=== PATIENT | male | born 1940 | race Caucasian/White ===

== ENCOUNTER → 2016-08-21 | Outpatient (CLI) | payer OTHER | END | disposition home or self-care (01) | LOC: C.LABMFLN 09:43 | PROVIDERS: ATTEND Radiology Radiation Oncology | DX: C61 Malignant neoplasm of prostate (principal) ==

== ENCOUNTER → 2017-06-24 | Outpatient (CLI) | payer OTHER | END | disposition home or self-care (01) | LOC: C.LABMFLN 10:21 | PROVIDERS: ATTEND Urology | DX: N40.0 Benign prostatic hyperplasia without lower urinary tract symptoms (principal); C61 Malignant neoplasm of prostate ==

== ENCOUNTER 2022-09-04 05:51 | Observation (INO) ==
--- NOTE | 2022-07-28 12:58 | PAT Medication Instructions ---
Medication Instructions Date of Service July 28, 2022 Home Medications Medication Instructions Recorded temazepam 30 mg capsule 30 mg PO HS PRN sleep #90 caps 02/10/22 atorvastatin 40 mg tablet 40 mg PO HS #90 tabs 03/06/22 calcitriol 0.25 mcg capsule See Rx Instructions PO 3XWK #36 05/26/22 caps loratadine 10 mg tablet 10 mg PO DAILY PRN allergy symptoms multivitamin 1 tab PO QAM calcium carbonate 600 mg-vitamin D3 10 mcg (400 unit) tablet (Calcium with Vitamin D) 1 tab PO QAM acetaminophen 325 mg tablet (Tylenol) 650 mg PO BID aspirin 81 mg chewable tablet (Arlin Chewable Low Dose Aspirin) 81 mg PO QAM tramadol 50 mg tablet 50 mg PO Q8H PRN Pain temazepam 30 mg capsule 30 mg PO HS PRN sleep docusate sodium 100 mg capsule (Colace) 100 mg PO QPM melatonin 10 mg capsule 10 mg PO HS PRN sleep atorvastatin 40 mg tablet 40 mg PO HS calcitriol 0.25 mcg capsule See Rx Instructions PO 3XWK cetirizine 10 mg tablet (Zyrtec) 10 mg PO DAILY PRN Allergy Symptoms chlorthalidone 25 mg tablet 25 mg PO QAM escitalopram oxalate 10 mg tablet 10 mg PO QPM fluticasone propionate 50 mcg/actuation nasal spray,suspension 2 spray intranasal QAM levothyroxine 25 mcg tablet 25 mcg PO QAM DO NOT take the morning of surgery loratadine 10 mg tablet 10 mg PO DAILY PRN allergy symptoms multivitamin 1 tab PO QAM calcium carbonate 600 mg-vitamin D3 10 mcg (400 unit) tablet (Calcium with Vitamin D) 1 tab PO QAM calcitriol 0.25 mcg capsule See Rx Instructions PO 3XWK cetirizine 10 mg tablet (Zyrtec) 10 mg PO DAILY PRN Allergy Symptoms chlorthalidone 25 mg tablet 25 mg PO QAM Take morning of surgery With a small sip of water, OTHERWISE NOTHING TO EAT OR DRINK AFTER MIDNIGHT: acetaminophen 325 mg tablet (Tylenol) 650 mg PO BID aspirin 81 mg chewable tablet (Arlin Chewable Low Dose Aspirin) 81 mg PO QAM (unless surgeon directed otherwise) tramadol 50 mg tablet 50 mg PO Q8H PRN Pain (if needed) fluticasone propionate 50 mcg/actuation nasal spray,suspension 2 spray intranasal QAM levothyroxine 25 mcg tablet 25 mcg PO QAM Take evening before surgery loratadine 10 mg tablet 10 mg PO DAILY PRN allergy symptoms (if needed) acetaminophen 325 mg tablet (Tylenol) 650 mg PO BID tramadol 50 mg tablet 50 mg PO Q8H PRN Pain (if needed) temazepam 30 mg capsule 30 mg PO HS PRN sleep (if needed) docusate sodium 100 mg capsule (Colace) 100 mg PO QPM melatonin 10 mg capsule 10 mg PO HS PRN sleep (if needed) atorvastatin 40 mg tablet 40 mg PO HS cetirizine 10 mg tablet (Zyrtec) 10 mg PO DAILY PRN Allergy Symptoms (if needed) escitalopram oxalate 10 mg tablet 10 mg PO QPM Other Notes If you have any questions please call us at [phone] or [phone] or [phone] or [phone]
--- NOTE | 2022-08-05 12:00 | Anesthesiology Consultation ---
Date of Service August 05, 2022 Assessment & Plan (1) Encounter for pre-operative examination: Chart Review Chart Review: Acceptable Risk for Surgery (pending response from cardio re: optimization form ) and Patient seen in Pre Admission Testing - Please fax optimization note re: chest pain and preop EKG to patient's rayon tester (Dr. Froy MORROW Clarence) - Pt is NOT an OPJ candidate due to age and comorbidities Per PAT appt on 08/05/22, patient denies any recent travel or large group activities. Pt is vaccinated for Covid. Will leave to surgeon's discretion if preop Covid testing needed. Educated on importance of using Covid precautions one week prior to surgery Pt seen by cardio 05/05/22= seen for cardio follow up. Doing relatively well. Chronic CAMPBELL- stable. Euvolemic on exam. Routien surveillance for aortic root enlargement. Repeat ECHO 1 week before next visit- if stable- repeat ECHO q 3 years. Follow up in six months Teaching & Discussion Pre-Anesthesia Teaching/Discussion Notes: Instructed NPO after midnight before surgery,except medications with 15 cc of water. Medication instructions pro vided according to the PAT guidelines. History Surgery Operation Date: 09/04/22 09:20 Proposed Procedures p Right Anterior Total Hip Arthroplasty - Justin Lee, Height/Weight Height: 5 ft 8 in Weight: 79.5 kg Allergies Allergy/AdvReac Type Severity Reaction Status Date / Time Iodinated Contrast Media Allergy Severe Stage 4 CKD Verified 07/27/22 09:33 [Iodinated Contrast- Oral and IV Dye] ciprofloxacin AdvReac Mild "Sick to Verified 07/27/22 09:33 stomach" Medications Home Medications Medication Instructions Recorded Confirmed Last Taken loratadine 10 mg tablet 10 mg PO DAILY PRN allergy 09/01/18 07/27/22 Unknown symptoms #30 tabs multivitamin 1 tab PO QAM 09/01/18 07/27/22 Unknown calcium carbonate 600 mg-vitamin 1 tab PO QAM 03/07/20 07/27/22 Unknown D3 10 mcg (400 unit) tablet (Calcium with Vitamin D) acetaminophen 325 mg tablet 650 mg PO BID 06/27/21 07/27/22 Unknown (Tylenol) aspirin 81 mg chewable tablet 81 mg PO QAM 06/27/21 07/27/22 Unknown (Arlin Chewable Low Dose Aspirin) tramadol 50 mg tablet 50 mg PO Q8H PRN Pain 06/27/21 07/27/22 Unknown docusate sodium 100 mg capsule 100 mg PO QPM 03/05/22 07/27/22 Unknown (Colace) melatonin 10 mg capsule 10 mg PO HS PRN sleep 03/05/22 07/27/22 Unknown atorvastatin 40 mg tablet 40 mg PO HS #90 tabs 03/06/22 07/27/22 Unknown calcitriol 0.25 mcg capsule See Rx Instructions PO 3XWK #36 05/26/22 07/27/22 Unknown caps cetirizine 10 mg tablet (Zyrtec) 10 mg PO DAILY PRN Allergy Symptoms 07/27/22 07/27/22 Unknown chlorthalidone 25 mg tablet 25 mg PO QAM 07/27/22 07/27/22 Unknown escitalopram oxalate 10 mg tablet 10 mg PO QPM 07/27/22 07/27/22 Unknown fluticasone propionate 50 2 spray intranasal QAM 07/27/22 07/27/22 Unknown mcg/actuation nasal spray,suspension levothyroxine 25 mcg tablet 25 mcg PO QAM 07/27/22 07/27/22 Unknown temazepam 30 mg capsule 30 mg PO HS PRN sleep #90 caps 07/31/22 Unknown Past Medical History Medical History Anemia Anxiety and depression CAD (coronary artery disease) Non-obstructive per 2018 cardiac cath Chronic back pain CKD (chronic kidney disease), stage IV Follows with nephrology, Dr. Brink Baseline creatinine 2.6-3.0 No dialysis Dilated aortic root Mild per 2021 ECHO (4.2cm) Essential tremor Right hand History of basal cell carcinoma Left ear History of prostate cancer s/p prostatectomy and XRT Bone mets, left femur (oligometastasis) Follows with heme/onc Hypercholesterolemia Hypertension Hypothyroidism Osteoarthritis Osteopenia Renal cyst, acquired Spinal stenosis Tinnitus Exercise / Class Metabolic Activity II 4-5 Yardwork/Stairs/Walk up hill (one flight of stairs - no chest pain or SOB ) Past Family History Family History Father Prostate cancer Coronary heart disease Colorectal cancer Mother Alzheimer disease Grandfather (Paternal) Prostate cancer Other No family history of adverse response to anesthesia Denies family history of Ovarian cancer Myocardial infarction Breast cancer Past Surgical History Surgical History H/O basal cell carcinoma excision History of colonoscopy 01/03/2020 History of prostate biopsy History of surgery vasectomy reversal History of tooth extraction S/P cardiac cath 2018 (30% mid LAD > no stents) S/P epidural steroid injection S/P prostatectomy Status post vasectomy Past Anesthesia History No Hx of Anesthesia Complications and No Family Hx of Anesthesia Complications History of PONV No Hx of PONV and No Hx of Motion Sickness Social History Smoking Status: Never smoker Do You Dip or Chew Tobacco: No Hx Alcohol Use: Yes Alcohol type: wine alcohol intake frequency: holidays/special occasions only Hx Substance Use: No substance use type: does not use Review of Systems -Chest pain with yardwork x 5 years - has had cardiac work up- improved with rest- chest pain has been the same x 5 years - Chronic cough secondary to allergic rhinitis- on Claritin - CAMPBELL (mild) with strenuous repeated activity Patient denies shortness of breath, reflux, wheezing, palpitations. No hx of seizures, stroke, TX, apnea/snoring. No hx of blood clots or blood transfusions Physical Exam Vital Signs VITALS BP 132/82 P 77 TEMP 98.0 SP02 97% RESP 16 Constitutional no acute distress ENMT Mouth: no TMJ clicking Thyromental Distance: > or= 3.5 Finger Breadths (3.5) Mallampati Class: I Missing side tooth Neck neck extension not limited Respiratory normal respiratory effort; no respiratory distress Auscultation: lungs clear to auscultation bilaterally; no wheezes Cardiovascular Rate/Rhythm: regular rate and regular rhythm Heart Sounds: no murmur Vessels: no carotid bruit Musculoskeletal Spine: no pain with cervical ROM Extremities: extremities normal to inspection Psychiatric Orientation: alert Lab Results Anesthesia Preop Results Results Anesthesia Widget: PT 10.8 Seconds (9.0-12.0) 08/05/22 PTT 28.2 Seconds (21.0-31.0) 08/05/22 INR 1.0 (0.9-1.1) 08/05/22 Blood Type B Positive 08/05/22 Antibody Screen NEGATIVE 08/05/22 Testing Laboratory Results 07/31/22= WBC: 6.52 H/H: 11.1/33.7 (chronic and stable anemia per review of previous labs) PLATELETS: 236 SODIUM: 141 POTASSIUM: 4.98 CHLORIDE: 104 CO2: 24 BUN: 49 CREATININE: 2.8 GLUCOSE: 98 GFR: 22 Electrocardiogram Date: 08/05/22 Findings: + NSR @ (71bpm) T wave abnormality, consider anterior lateral ischemia When compared to EKG from July 01, 2021no significant change was found per cardio Chest X-Ray Date: 08/05/22 Findings: + NAD FINDINGS: Lung volumes are normal. There is no consolidation to suggest pneumonia. Linear left basilar densities favor atelectasis or scarring. There is no pneumothorax or pleural effusion. Cardiac size is normal. Mediastinal contours are normal. There is no evidence for pulmonary edema. Echocardiogram Date: 09/16/21 EF: 70% RWMA: + none Other Findings: + LVH (mild/concentric) and + diastolic dysfunction (Grade I) RV cavity size and systolic function normal. Mild MR. Mild TR. Aortic root mildly enlarged Stress Test Date: 09/16/21 Type: nuclear Lexiscan nuclear cardiac stress test negative for ischemia LVEF calculated 70% Gated SPECT images reveals normal myocardial thickening and wall motion Cardiac Catheterization Date: 10/11/18 30% mid LAD stenosis and mild luminal irregularities in the RCA. LVEDP mildly elevated (19 mmHg). Per report no angiographic explanation for abnormal stress test. Continued medical management. COVID-19 Risk Screen Screening Information COVID-19 Screen Date: 08/05/22 Exposure 21 Days Family/Household +COVID Last 21 Days: No Exposure 10 Days Any COVID Exposure Last 10 Days: No Symptoms Last 10 Days Experienced COVID Sx Last 10 Days: No + COVID 0-90 Days COVID + in Last 0-90 Days: No Risk Plan COVID Risk Plan: No Risk Identified Patient Education COVID Preop Screening Education Complete: Yes
--- NOTE | 2022-09-03 07:48 | History & Physical Report ---
Date of Service September 03, 2022 Assessment & Plan (1) Osteoarthritis of right hip: We will proceed with a right anterior total of arthroplasty. Postoperatively he will be started on aspirin for DVT prophylaxis and kept overnight in the hospital for postop medical management. History of Present Illness Chief Complaint: Osteoarthritis of the right hip. Primary Care Provider: Josh Olivas MD Jordon is a pleasant 81-year-old male who has been dealing with chronic increasing right hip pain. He has been seeing Dr. Biggs at [facility] for back injections for years. He has also had a single right intraarticular hip injection. There are times where his hip does not bother him much; however there are other times where he had severe pain in his right hip and can barely walk. X-rays showed chronic worsening osteoarthritis of the right hip. After failing conservative treatment, he is elected proceed with a right total hip arthroplasty. Allergies Allergy/AdvReac Type Severity Reaction Status Date / Time Iodinated Contrast Media Allergy Severe Stage 4 CKD Verified 08/24/22 11:33 [Iodinated Contrast- Oral and IV Dye] ciprofloxacin AdvReac Mild "Sick to Verified 08/24/22 11:33 stomach" Home Medications Medication Instructions Recorded Confirmed Type multivitamin 1 tab PO QAM 09/01/18 08/24/22 History calcium carbonate 600 mg-vitamin 1 tab PO QAM 03/07/20 08/24/22 History D3 10 mcg (400 unit) tablet (Calcium with Vitamin D) acetaminophen 325 mg tablet 650 mg PO BID 06/27/21 08/24/22 History (Tylenol) aspirin 81 mg chewable tablet 81 mg PO QAM 06/27/21 08/24/22 History (Arlin Chewable Low Dose Aspirin) tramadol 50 mg tablet 50 mg PO Q8H PRN Pain 06/27/21 08/24/22 History melatonin 10 mg capsule 10 mg PO HS PRN sleep 03/05/22 08/24/22 History calcitriol 0.25 mcg capsule See Rx Instructions PO 3XWK #36 05/26/22 08/24/22 Rx caps cetirizine 10 mg tablet (Zyrtec) 10 mg PO DAILY PRN Allergy Symptoms 07/27/22 08/24/22 History chlorthalidone 25 mg tablet 25 mg PO QAM 07/27/22 08/24/22 History escitalopram oxalate 10 mg tablet 10 mg PO QPM 07/27/22 08/24/22 History fluticasone propionate 50 2 spray intranasal QAM 07/27/22 08/24/22 History mcg/actuation nasal spray,suspension levothyroxine 25 mcg tablet 25 mcg PO QAM 07/27/22 08/24/22 History temazepam 30 mg capsule 30 mg PO HS PRN sleep #90 caps 07/31/22 08/24/22 Rx metoprolol succinate 25 mg 25 mg PO DAILY 08/10/22 08/24/22 History tablet,extended release 24 hr atorvastatin 40 mg tablet 40 mg PO HS #90 tabs 08/24/22 Rx docusate sodium 100 mg capsule 100 mg PO PRN 08/24/22 08/24/22 History (Colace) omeprazole 20 mg capsule,delayed 20 mg PO DAILY #30 caps 08/24/22 08/24/22 Rx release Past Med/Surg History Medical History Anemia Anxiety and depression CAD (coronary artery disease) Non-obstructive per 2019 cardiac cath Chronic back pain CKD (chronic kidney disease), stage IV Follows with nephrology, Dr. Brink Baseline creatinine 2.6-3.0 No dialysis Congestion of throat Dilated aortic root Mild per 2021 ECHO (4.2cm) Essential tremor Right hand History of basal cell carcinoma Left ear History of prostate cancer s/p prostatectomy and XRT Bone mets, left femur (oligometastasis) Follows with heme/onc Hypercholesterolemia Hypertension Hypothyroidism Osteoarthritis Osteoarthritis of right hip Osteopenia Renal cyst, acquired Spinal stenosis Tinnitus Surgical History H/O basal cell carcinoma excision History of colonoscopy 01/03/2020 History of prostate biopsy History of surgery vasectomy reversal History of tooth extraction S/P cardiac cath 2018 (30% mid LAD > no stents) S/P epidural steroid injection S/P prostatectomy Status post vasectomy Family History Father Prostate cancer Coronary heart disease Colorectal cancer Mother Alzheimer disease Grandfather (Paternal) Prostate cancer Other No family history of adverse response to anesthesia Denies family history of Ovarian cancer Myocardial infarction Breast cancer Social History Smoking Status: Never smoker Second Hand Exposure: Yes ( A CHILD); Do You Dip or Chew Tobacco: No; Hx Alcohol Use: Yes Alcohol type: wine Hx Substance Use: No Preferred Language: Slovenian Communication Ability: Effective Visual Impairment: Limited Hearing Ability: Normal Medical And Scientific Illustrator Required: No Beliefs That Will Affect Care: None marital status: Current Living Situation: Spouse current occupational status: retired current occupation: Used to work at [employer] as the [employer] How many Children do You have: 3 Feels Safe at Home: Yes Childhood Exposure to Second-Hand Smoke: Yes (father) Diet: low carbohydrate, low salt and regular caffeine: Yes during the past year weight has: remained stable Dental Care, Regularly: Yes Physical Activity Frequency: Does not Exercise Physical Activity Frequency Comment: Gets more exercise in the summer when the weather is nice. Seatbelt Use: always Sunscreen Use: No Do you think of yourself as: straight/heterosexual Gender Identity: Male Assistive Devices: Glasses Review of Systems All systems reviewed & are unremarkable except as noted in HPI & below. Physical Exam On physical examination of the right hip, he has decreased range of motion. He has pain with forced internal and external rotation.. Constitutional WD/WN, vitals as above Eyes PERRL, conjunctivae normal, anicteric sclerae ENMT external ear and nose normal, oropharynx normal Neck trachea midline, no thyromegaly Respiratory normal respiratory effort, lungs clear to auscultation Cardiovascular RRR, no murmur, no edema Gastrointestinal (Abdomen) normal bowel sounds, soft, nontender, no hepatosplenomegaly Skin no rashes, warm and dry Psychiatric A+Ox3, euthymic affect Results & Data Results & Data Laboratory Results . Diagnostic Findings X-rays of the right hip show advanced osteoarthritis with joint space narrowing, osteophyte formation, and [id number] articulation PG Care Time/CCT Total # of Minutes Spent Total Time Spent with Patient: Total time spent is greater than 50% in coordination of care (as documented) at patient's floor/unit and/or counseling patient: Coding Level of Care Code None Diagnoses Osteoarthritis of right hip M16.11
[2022-09-04] MEDS ORDERED: ACETAMINOPHEN 500 MG TAB PO SCH (06:00)
[2022-09-04] MEDS ORDERED: ceFAZolin 2000MG 2,000 MG/15 ML SYR IV SCH (06:00)
[2022-09-04] MEDS ORDERED: TRANEXAMIC ACID 1,000 MG **IV Intra-op IV SCH (06:00)
[2022-09-04] MEDS ORDERED: TRANEXAMIC ACID 1,000 MG **IV Pre-op IV SCH (06:00)
[2022-09-04] MEDS ORDERED: SODIUM CHLORIDE 0.9% 1000ML IV SCH (06:00)
[2022-09-04] MEDS ORDERED: FAMOTIDINE 20 MG TAB PO SCH (06:00)
[2022-09-04] MEDS ORDERED: GABAPENTIN 300 MG CAP PO SCH (06:00)
[2022-09-04] MEDS ORDERED: ORTHO JOINT MIX INFIL SCH (06:00)
[2022-09-04] MEDS ORDERED: dexAMETHasone 4 MG TAB PO SCH (06:00)
[2022-09-04] MEDS ORDERED: LR 60ML/HR IV SCH (06:00)
[2022-09-04] MEDS ORDERED: BUPIVACAINE 0.5 % 5 MG/1 ML PF 10ML VIAL ONE (06:08)
--- NOTE | 2022-09-04 06:42 | History & Physical Bridge Note ---
Date of Service September 04, 2022 History & Physical Bridge Note I have examined the patient, reviewed the History & Physical and in the interval since the performance of the History & Physical I have noted the following changes of clinical significance: no changes noted
[2022-09-04] MEDS ORDERED: ONDANSETRON INJ 2 MG/ML 2 ML VIAL ONE (06:57)
[2022-09-04] MEDS ORDERED: PROPOFOL IV EMULSION 10 MG/ML 20 ML VIAL IV ONE (06:57)
[2022-09-04] MEDS ORDERED: MIDAZOLAM HCL 1 MG/ML 2ML VIAL ONE (06:58)
[2022-09-04] MEDS ORDERED: fentaNYL citrate PF 100 MCG/2 ML VIAL IV PRN (07:04)
[2022-09-04] MEDS ORDERED: ONDANSETRON INJ 2 MG/ML 2 ML VIAL IV PRN ×2 (07:04→11:18)
[2022-09-04] MEDS ORDERED: ePHEDrine sulfate 50 MG/ML AMP IV PRN (07:04)
[2022-09-04] MEDS ORDERED: ATROPINE SULFATE 0.1 MG/ML 10ML SYR IV PRN (07:04)
[2022-09-04] MEDS ORDERED: ORTHO JOINT ANESTHETIC ONE (07:22)
[2022-09-04] MEDS ORDERED: ePHEDrine sulfate 50 MG/ML SYR ONE (08:21)
--- NOTE | 2022-09-04 09:34 | Operative Report ---
PG Post Operative Report Pre & Post Diagnosis Operation Date: 09/04/22 08:00 Pre-Op Diagnosis: Osteoarthritis Right Hip Post-Op Diagnosis: Osteoarthritis Right Hip I identified the patient and participated in the time-out.: Yes Procedure Operation Date: 09/04/22 08:00 Actual Procedures p Right Anterior Total Hip Arthroplasty(Right) - Justin Lee DO Surgeon Justin Lee DO [employer] Justin Staruss PA-C Estimated Blood Loss 250 Findings Consistent with Post-Op Diagnosis Specimens Right femoral head Description of Procedure Implants used I used a ZimmerBiomet total hip arthroplasty system with a size 3 standard offset Avenir Complete stem, a 58 mm G7 cup with a 25mm screw, an E1 polyethylene liner, a 40 mm ceramic head with a +3.5 neck. Trevor arrived at the hospital for the above procedure. He was seen in the preoperative holding area and the operative extremity was identified and signed. He was given a spinal anesthetic, a preoperative antibiotic, and TXA. He was then taken back to the operating room and laid on the table in the supine position. He was given basic sedation. The operative leg was secured to a Puristst leg positioner. The hip was then prepped and draped in sterile fashion. A timeout was done and the patient and the operative extremity was properly identified. An anterior approach was used. Dissection was taken down through the fascia and the tensor muscle belly was retracted laterally and the rectus was retracted medially. The circumflex vessels were identified and ligated. The capsule was then incised and tagged for later repair. The femoral neck was then cut and the femoral head was removed. The acetabulum was exposed. Time was spent doing a complete circumferential labral release. Sequential reaming of the acetabulum up to a size 57 reamer was done. Final reamings were done under fluoroscopy to ensure appropriate version. A Biomet 58 mm G7 cup was then impacted into place. A single 25 mm screw was placed. The E1 polyethylene liner was then snapped into place. Surrounding soft tissues were then injected with 100 cc of an orthopedic pain control cocktail. The proximal femur was then exposed. Sequential broaching up to a size 3 broach was done. Off that broach a size 40 head with a +3.5 neck was trialed. The hip was reduced and fluoroscopic images showed anatomic alignment of the implants in acceptable length. The broach was removed. The final size 3 standard offset Avenir Complete stem was then impacted into place. A ceramic 40 mm head with a +3.5 neck was then impacted onto the stem and the hip was reduced. Final fluoroscopic images showed anatomic alignment of the hip. The capsule was then closed with #1 Vicryl suture. A dilute betadyne lavage was then done for 3 minutes. The joint was then irrigated with normal saline solution. The fascia was closed with #1 PDS suture. Skin was closed with 2-0 Vicryl, curly, and a Silverlon dressing. He was then transferred to a hospital bed and taken to the post anesthesia care unit in stable condition. He tolerated the procedure well. Justin Strauss PA-C, was present for the entire procedure. He was critical for patient positioning, prepping, draping, retraction exposure, wound closure and application of sterile dressing. I attest to the content of the Intraoperative Record and any orders documented therein. Any exceptions are noted below.
--- NOTE | 2022-09-04 10:40 | Anesthesiology Progress Note ---
Date of Service September 04, 2022 Anesthesia Post Procedure Vital Signs Vital Signs: Temp Pulse Pulse Resp BP Pulse Ox O2 Del Method 09/04/22 10:30 67 16 112/70 94 Room Air 09/04/22 10:10 65 13 122/55 L 100 Oxymask 09/04/22 10:20 66 12 117/63 94 Room Air 09/04/22 10:00 68 13 115/69 98 Oxymask 09/04/22 09:50 98.1 F 67 18 117/52 L 96 Oxymask 09/04/22 06:26 97.9 F 58 L 20 137/67 98 Room Air O2 Flow Rate 09/04/22 10:30 09/04/22 10:10 5 09/04/22 10:20 09/04/22 10:00 5 09/04/22 09:50 5 09/04/22 06:26 Pain Intensity Right Hip: Pain Intensity: 6 Transfer of Care Handoff Completed per policy Notes Mental Status: alert / awake / arousable and participated in evaluation Patient Amnestic to Procedure: Yes Nausea / Vomiting: adequately controlled Pain: adequately controlled Airway Patency, RR, SpO2: stable & adequate BP & HR: stable & adequate Hydration State: stable & adequate Neuraxial Anesthesia: was administered and sensory block is resolving Anesthetic Complications: no major complications apparent and Pt Satisfied with anesthetic care
--- NOTE | 2022-09-04 11:17 | XRay Report ---
SINGLE VIEW PELVIS; SINGLE VIEW RIGHT HIP CLINICAL HISTORY: Postoperative examination. FINDINGS: An AP portable view of the hips and pelvis with a crosstable lateral portable view of the r ight hip are compared to study dated 07/01/2022. A bipolar right hip arthroplasty is in near-anatomic alignment. A single cortical lag screw transfixes the acetabular cup. No acute fracture is identified . There are expected postoperative changes overlying the right hip including skin clips, subcutaneous gas, and soft tissue swelling. [id number] arthritic changes noted in the left hip. IMPRESSION: Expected postoperative findings status post right hip arthroplasty. No acute fracture is seen. ACT 112: Negative or not required by law. Electronically signed by: Josh Gatica M.D. 09/04/2022 11:16 AM
[2022-09-04] MEDS ORDERED: MAGNESIUM HYDROXIDE SUSP 30 ML UDC PO PRN (11:18)
[2022-09-04] MEDS ORDERED: SODIUM CHLORIDE 0.9% 1000ML 1,000 ML IV SCH (11:18)
[2022-09-04] MEDS ORDERED: bisacodyL 10 MG SUPP PR PRN (11:18)
[2022-09-04] MEDS ORDERED: METOCLOPRAMIDE HCL INJ 5 MG/ML 2 ML VIAL IV PRN (11:18)
[2022-09-04] MEDS ORDERED: oxyCODONE HCL IR 5 MG TAB (IMMEDIATE RELEASE) PO PRN (11:18)
[2022-09-04] MEDS ORDERED: CETIRIZINE HCL 10 MG TABLET PO PRN (11:18)
[2022-09-04] MEDS ORDERED: HYDROmorphone INJ 0.5 MG/0.5 ML SYR IV PRN (11:18)
[2022-09-04] MEDS ORDERED: TEMAZEPAM 15 MG CAPSULE PO PRN (11:18)
[2022-09-04] MEDS ORDERED: NALOXONE HCL 0.4 MG/1 ML VIAL/CARP IV PRN (11:18)
[2022-09-04] MEDS ORDERED: MELATONIN 3 MG TAB PO PRN (11:34)
--- NOTE | 2022-09-04 11:56 | Fluoroscopy Report ---
FL hip RT 1V CLINICAL HISTORY: Right anterior hip replacement. COMPARISON STUDY: None. FLUOROSCOPY TIME: 14 seconds FLUOROSCOPY IMAGES: 2 Ka,r: 1.5 mGy FINDINGS: There is a right total hip arthroplasty. The hardware is intact. No fracture or dislocation . IMPRESSION: Fluoroscopic assistance as above. ACT 112: Negative or not required by law. Electronically signed by: Christian Allen M.D. 09/04/2022 11:54 AM
[2022-09-04] MEDS: KETOROLAC TROMETHAMINE 15 MG/ML VIAL IV SCH ×3 (12:04→22:56)
[2022-09-04] MEDS: ACETAMINOPHEN 500 MG TAB PO SCH ×2 (13:27→21:51)
[2022-09-04] MEDS: ceFAZolin 2000MG 2,000 MG/15 ML SYR IV SCH ×2 (16:25→23:41)
[2022-09-04] MEDS: DOCUSATE SODIUM 100 MG CAP PO SCH (20:04)
[2022-09-04] MEDS: ASPIRIN 81 MG ECTAB PO SCH (20:04)
[2022-09-04] MEDS ORDERED: ESCITALOPRAM OXALATE 10 MG TAB PO SCH (21:00)
[2022-09-04] MEDS ORDERED: SENNA 8.6 MG TAB PO SCH (21:00)
[2022-09-04] MEDS ORDERED: ATORVASTATIN 40 MG TAB PO SCH (21:00)
[2022-09-05] MEDS: KETOROLAC TROMETHAMINE 15 MG/ML VIAL IV SCH ×2 (05:35→11:47)
[2022-09-05] MEDS: ACETAMINOPHEN 500 MG TAB PO SCH (05:35)
[2022-09-05] MEDS ORDERED: LEVOTHYROXINE SODIUM 25 MCG TABLET PO SCH (06:30)
--- NOTE | 2022-09-05 06:43 | Orthopedic Progress Note ---
Date of Service September 05, 2022 Assessment & Plan (1) Status post right hip replacement: Overall he is doing very well. Is not having much pain in the right hip. He will be seen by physical therapy today for ambulation and range of motion exercises. He is on aspirin for DVT prophylaxis. He can be discharged home later today. He will follow-up orthopedics in 2 weeks. Subjective Plan was seen and examined at bedside this morning. Overall is doing very well. Is not having too much pain in the right hip. He has been up and ambulating to the bathroom. He has no complaints.. Review of Systems All systems reviewed & are unremarkable except as noted in HPI & below. Physical Exam On physical examination of the right hip, the dressing is clean and dry. His leg is out full extension. He has active dorsiflexion plantarflexion of his right ankle.. Results & Data Results & Data Laboratory Results . Diagnostic Findings Postoperative x-rays of the right hip show the prosthesis to be in anatomic ali gnment without any evidence of fracture complication, or loosening.. PG Care Time/CCT Total # of Minutes Spent Total Time Spent with Patient: Total time spent is greater than 50% in coordination of care (as documented) at patient's floor/unit and/or counseling patient: Coding Level of Care Code 32697 Post Operative Follow-Up Diagnoses Status post right hip replacement Z96.641
--- NOTE | 2022-09-05 06:44 | Discharge Summary ---
Date of Service September 05, 2022 Admission HPI (Per Admitting) Jordon is a pleasant 81-year-old male who has been dealing with chronic increasing right hip pain. He has been seeing Dr. Biggs at [facility] for back injections for years. He has also had a single right intraarticular hip injection. There are times where his hip does not bother him much; however there are other times where he had severe pain in his right hip and can barely walk. 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 After failing conservative treatment, he is elected proceed with a right total hip arthroplasty. Admission Exam (Per Admitting) On physical examination of the right hip, he has decreased range of motion. He has pain with forced internal and external rotation.. Principal Diagnosis Same as "Discharge Diagnosis" noted below under Discharge Instructions. Discharge Exam On physical examination of the right hip, the dressing is clean and dry. His leg is out full extension. He has active dorsiflexion plantarflexion of his right ankle.. Discharge Data Procedures Performed Operation Date: 09/04/22 08:00 Actual Procedures p Right Anterior Total Hip Arthroplasty(Right) - Justin Lee DO Ordered Studies 09/04/22 08:00 FL hip RT 1V Routine Hospital Course (1) Status post right hip replacement: On September 04, 2022 Patricia arrived at [facility] and underwent a right hip replacement without complication. He had a spinal anesthetic. Postoperatively he was started on aspirin for DVT prophylaxis and transferred to the general orthopedic floors. His hospital course was uneventful. On postop day #1, his vital signs were stable and his pain is well controlled. He was able to participate well with physical therapy doing ambulation and range of motion exercises. He was then discharged home. He will follow-up with orthopedics in 2 weeks. PG Care Time/CCT Total # of Minutes Spent Total Time Spent with Patient: Total time spent is greater than 50% in coordination of care (as documented) at patient's floor/unit and/or counseling patient: Discharge Plan Discharge Items Patient Disposition: Home - Home Health Services Reason For Visit: DJD Right Hip Discharge Diagnosis: Right hip replacement Activity: As commented below Non-emergency contact: Surgeon Call non-emergency contact if: your wound has increased redness and your wound has increased drainage Follow-up/Referrals: Josh Olivas MD [Primary Care Provider] - Diet: Regular Addtl Attending Provider Instructions: Activity and Therapy Recommendations: * If you are using [facility] then therapy will be provided at your home until they feel you have accomplished all of your goals. * If you are using [facility] then Physical Therapy will be provided until they feel you are ready to start Outpatient Physical Therapy. * If you are not using home therapy then Outpatient Physical Therapy should start about 3-5 days from your day of surgery. Therapy will last about 6-10 weeks * You were shown a series of exercises in the hospital. Do these exercises three times each day including the exercises you were shown in physical therapy. * Get up and walk several times each day.~ For the first four weeks, try not to stand or walk for more than one hour at a time. If you do stand or walk for more than one hour, you will not hurt anything, but your leg will likely swel l.~~ * As you feel comfortable, you may change from the walker or crutches to a cane and~then to independent walking. Medications: * Narcotic You will likely be sent home from the hospital with a prescription for the narcotic pain medication that worked best throughout your stay. * Aspirin Most patients will be required to take Aspirin 81mg twice a day for 6 weeks after surgery. This is obtained [id number] and a prescription is not necessary. * Other medications may be prescribed for specific circumstances. If you have any questions, please call the office at . * Resume previous home medications unless otherwise instructed TEDs/Elastic Stockings: The white elastic stockings help limit swelling and prevent blood clots from forming in your legs. The more you wear them, the more they work. Wear them for six weeks. Dressing Care: Leave the Silverlon dressing in place for 7 days. After 7 days you may remove the dressing. If the incision is not draining then you may leave the curly open to air. If there is a little bit of drainage or if the curly are getting stuck on your clothing then cover the incision with a dry dressing. The curly will be removed at your 2 week follow-up appointment. Showering: You may shower with the Silverlon dressing in place. Do not let the shower spray hit the dressing directly. Pat the Silverlon dressing dry. If the dressing becomes wet underneath, then simply remove the dressing. Keep the incision dry until you are 7 days out from the day of surgery. After 7 days you may remove the Silverlon dressing and shower with the curyl exposed. Let soapy water run over the curly and pat them dry. Do not scrub or soak the incision. Things To Watch For: * Drainage from the incision site that occurs more than one week after your surgery. * Increased redness at the incision site. * Fever above 102 degrees Fahrenheit. * Unusual chest pain or shortness of breath. * Call [facility] at with any of the above problems Follow-Up Visit: Follow-up with Dr. Lee's PA (Justin Strauss) 2-3 weeks after your day of surgery. He will remove your curly and answer any questions. If you have any additional questions or concerns, Dr Lee is usually in the office at the same time and will be available An appointment was probably scheduled when you signed-up for surgery in the office. If you have any questions call Office Instructions: More detailed instructions as well as Frequently Asked Questions were provided in a folder by our office when you signed-up for surgery. Please review these instructions when you get home. If you have any further questions or concerns, please feel free to call the office at [phone] Pending Studies at Discharge: No Stand-Alone Forms: [facility], Smoking Cessation Medications and DC Order Prescriptions: Continued calcitriol 0.25 mcg capsule See Patient Comments PO 3XWK Qty: 36 3RF Patient Comments: IN AM Rx Instructions: . temazepam 30 mg capsule 30 mg PO HS PRN (Reason: sleep) Qty: 90 1RF Rx Instructions: approved metoprolol succinate 25 mg tablet extended release 24 hr 25 mg PO DAILY Patient Comments: CONFIRMED W/ AND [facility] DC SUMMARY 08/10 atorvastatin 40 mg tablet 40 mg PO HS Qty: 90 3RF multivitamin tablet 1 tab PO QAM calcium carbonate-vitamin D3 [Calcium with Vitamin D] 600 mg(1,500mg) -400 unit tablet 1 tab PO QAM omeprazole 20 mg capsule,delayed release(DR/EC) 20 mg PO DAILY Qty: 30 2RF melatonin 10 mg capsule 10 mg PO HS PRN (Reason: sleep) docusate sodium [Colace] 100 mg capsule 100 mg PO PRN cetirizine [Zyrtec] 10 mg Tablet 10 mg PO DAILY PRN (Reason: Allergy Symptoms) chlorthalidone 25 mg Tablet 25 mg PO QAM levothyroxine 25 mcg tablet 25 mcg PO QAM fluticasone propionate 50 mcg/actuation spray,suspension 2 spray intranasal QAM Patient Comments: TAKES ONLY PRN CONGESTION escitalopram oxalate 10 mg tablet 10 mg PO QPM tramadol 50 mg Tablet 50 mg PO Q8H PRN (Reason: Pain) Changed aspirin [Arlin Chewable Aspirin] 81 mg tablet,chewable 81 mg PO BID 42 Days Qty: 0 0RF Discontinued acetaminophen [Tylenol] 325 mg Tablet 650 mg PO BID Rx Instructions: Takes two 650mg tablets of Tylenol BID Admission Data Admit Date/Time: 09/04/22 09:51 Attending Provider: Justin Lee Admit Provider: Justin Lee Primary Care Provider: Josh Olivas
[2022-09-05] MEDS ORDERED: dexAMETHasone 4 MG TAB PO SCH (08:00)
[2022-09-05] MEDS: ASPIRIN 81 MG ECTAB PO SCH (08:29)
[2022-09-05] MEDS: DOCUSATE SODIUM 100 MG CAP PO SCH (08:30)
[2022-09-05] MEDS ORDERED: METOPROLOL SUCC 25MG EXT REL TAB PO SCH (09:00)
[2022-09-05] MEDS ORDERED: CHLORTHALIDONE 25 MG TAB PO SCH (09:00)
[2022-09-05] MEDS ORDERED: FLUTICASONE PROPIONATE NA SPR 16 GM BTL SCH (09:00)
[2022-09-05] MEDS ORDERED: MULTIVITAMIN TAB PO SCH (09:00)
== END 2022-09-05 12:34 | disposition home health service (06) ==
LOC: ASU 05:51 → 3E 05:51

== ENCOUNTER 2024-07-31 10:04 | Observation (INO) ==
--- NOTE | 2024-07-04 09:50 | PAT Medication Instructions ---
Medication Instructions Date of Service July 04, 2024 Home Medications Medication Instructions Recorded cyanocobalamin (vitamin B-12) 1,000 mcg PO DAILY #30 tabs 04/22/23 1,000 mcg tablet fluticasone propionate 50 2 spray intranasal QAM #48 grams 07/01/23 mcg/actuation nasal spray,suspension hydrocortisone 2.5 % topical cream 1 applic NC TID PRN hemorrhoids 09/24/23 with perineal applicator #30 grams calcitriol 0.25 mcg capsule See Rx Instructions PO 3XWK #36 01/27/24 caps atorvastatin 40 mg tablet 40 mg PO HS #90 tabs 05/29/24 escitalopram oxalate 10 mg tablet 10 mg PO QPM #90 tabs 05/29/24 levothyroxine 25 mcg tablet 25 mcg PO QAM #90 tabs 05/29/24 multivitamin 1 tab PO QAM melatonin 10 mg capsule 10 mg PO HS sleep metoprolol succinate 25 mg tablet,extended release 24 hr 25 mg PO QAM cyanocobalamin (vitamin B-12) 1,000 mcg tablet 1,000 mcg PO DAILY cetirizine 10 mg tablet (Zyrtec) 10 mg PO QAM Allergy Symptoms fluticasone propionate 50 mcg/actuation nasal spray,suspension 2 spray intranasal QAM hydrocortisone 2.5 % topical cream with perineal applicator 1 applic NC TID PRN hemorrhoids chlorthalidone 25 mg tablet 25 mg PO QPM torsemide 20 mg tablet 20 mg PO QAM calcitriol 0.25 mcg capsule See Rx Instructions PO 3XWK atorvastatin 40 mg tablet 40 mg PO HS escitalopram oxalate 10 mg tablet 10 mg PO QPM levothyroxine 25 mcg tablet 25 mcg PO QAM allopurinol 100 mg tablet 200 mg PO QPM aspirin 81 mg chewable tablet (WhistleTalk Chewable Low Dose Aspirin) 81 mg PO QAM docusate sodium 50 mg capsule (Stool Softener) 50 mg PO UD PRN Constipation lidocaine 5 % topical ointment 1 applic topical UD PRN Anal irritation omeprazole 20 mg capsule,delayed release 20 mg PO QAM temazepam 30 mg capsule 30 mg PO HS sleep tramadol 50 mg tablet 50 - 100 mg PO QID PRN pain ASK your prescriber and surgeon aspirin 81 mg chewable tablet (WhistleTalk Chewable Low Dose Aspirin) 81 mg PO QAM STOP taking 24 hours before surgery hydrocortisone 2.5 % topical cream with perineal applicator 1 applic NC TID PRN hemorrhoids lidocaine 5 % topical ointment 1 applic topical UD PRN Anal irritation DO NOT take the morning of surgery multivitamin 1 tab PO QAM cyanocobalamin (vitamin B-12) 1,000 mcg tablet 1,000 mcg PO DAILY cetirizine 10 mg tablet (Zyrtec) 10 mg PO QAM Allergy Symptoms torsemide 20 mg tablet 20 mg PO QAM calcitriol 0.25 mcg capsule See Rx Instructions PO 3XWK docusate sodium 50 mg capsule (Stool Softener) 50 mg PO UD PRN Constipation Take morning of surgery With a small sip of water, OTHERWISE NOTHING TO EAT OR DRINK AFTER MIDNIGHT: metoprolol succinate 25 mg tablet,extended release 24 hr 25 mg PO QAM fluticasone propionate 50 mcg/actuation nasal spray,suspension 2 spray intranasal QAM levothyroxine 25 mcg tablet 25 mcg PO QAM omeprazole 20 mg capsule,delayed release 20 mg PO QAM tramadol 50 mg tablet 50 - 100 mg PO QID PRN pain (if needed) Take evening before surgery melatonin 10 mg capsule 10 mg PO HS sleep chlorthalidone 25 mg tablet 25 mg PO QPM atorvastatin 40 mg tablet 40 mg PO HS escitalopram oxalate 10 mg tablet 10 mg PO QPM allopurinol 100 mg tablet 200 mg PO QPM docusate sodium 50 mg capsule (Stool Softener) 50 mg PO UD PRN Constipation (if needed) temazepam 30 mg capsule 30 mg PO HS sleep tramadol 50 mg tablet 50 - 100 mg PO QID PRN pain (if needed) Other Notes If you have any questions please call us at [phone] or [phone] or [phone] or [phone]
--- NOTE | 2024-07-10 13:33 | Anesthesiology Consultation ---
Date of Service July 10, 2024 Assessment & Plan (1) Encounter for pre-operative examination: - Infectious disease screening: Per assessment on 06/28/24- No known recent infectious disease contacts or current infectious disease symptoms. - Outpatient joint pathway: Per OR booking comments, initial plan for outpatient joint program. Patient seen at [facility] 07/10/24. Case reviewed with Dr. Turner- indicates that patient is not recommended candidate for OPJ pathway. Patient's Alissa (HIPPA contact), FANNY and Xuan with surgeon's office made aware. - Cardiology visit (03/02/24): "Patient states he has been doing relatively well. He has chronic mild dyspnea with exertion which has not worsened in frequency or severity. He otherwise denies chest pain, dyspnea at rest, orthopnea, PND, lower extremity edema, palpitations, or syncope. Echocardiogram done on 11/05/2022 showed LVEF of 60-64%, normal RV size and systolic function, mild AI, mild TR and mildly enlarged aortic root. Lexiscan nuclear stress test done on 08/07/2022 showed no significant evidence of ischemia with LVEF of 65%... Plan Patient doing well today. He denies chest pain, dyspnea at rest, or syncope. He has chronic mild dyspnea on exertion which has not worsened in frequency or severity. On clinical exam he is euvolemic..Routine surveillance for her his aortic root enlargement. Will plan on repeating echocardiogram 1 week before next visit.. 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 Fairly Slow decline in renal function over the last 7 years. Has no major risk factor for renal dz like Dm2, uncontrolled HTN , heart Dz. He did take lot of NSAID/Mecrado-I in the past and is the likely cause of CKD. However will not do renal biopsy to prove this. Urine sediment is completely normal with no blood and no protein and no cells/casts. This pretty much rules out all primary GN. Normal exam and no symptoms beside.. He has agreed to avoid NSAIDS and MERCADO-I.. No evidence of fluid overload. Blood pressure is controlled. Labs done yesterday June 29, 2024 Reviewed GFR 20 creatinine 3.1. Potassium is at times high--- secondary to diet issues. No edema. Blood pressure is fairly well controlled. We also briefly discussed about dialysis modality as per patient request even though he is not close to needing dialysis. GFR has been in this range for few years already now. He is leaning towards home dialysis but he does not not need it now and may never need.. We will continue to monitor his kidney function and potassium closely with monthly labs.. November 2022 he had potassium of 6.3 because of eating lot of red sauce.. Patient and his said they will even better with diet control for potassium. And given normal potassium yesterday continue the same. If he gets another blood work showing potassium of 6 we will be using Veltassa/Lokelma." - [facility] heme/onc visit (07/04/24): "ASSESSMENT: 1. 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 62 on 12/10/2023 with markedly improved quality of life off Depo-Lupron, negative PSMA scan 09/03/2022, last Depo-Lupron injection 04/24/2021. PSA doubling time 3 months. PSMA scan with right obturator lymph node oligometastasis, SBRT 3000 cGy (3 x 1000 cGy fractions) ending 05/19/2024, PSA now 0.86.. PLAN.. 1. No systemic treatment for prostate cancer at this time. 2. Proceed with right shoulder replacement. 3. Proceed with cataract surgery bilaterally. 4. Office visit 3 months with CBC, diff, CMP, PSA, testosterone" - Pending: * Awaiting upcoming routine PCP visit ([facility], appt 07/24). * Note written to cardiology regarding preop EKG- Awaiting response ([facility] Kath cardio). Chart Review Chart Review: Patient seen in Pre Admission Testing Teaching & Discussion Pre-Anesthesia Teaching/Discussion Notes: Instructed NPO after midnight before surgery,except medications with 15 cc of water. Medication instructions provided according to the PAT guidelines. History Surgery Operation Date: 07/31/24 07:15 Proposed Procedures p Right Reverse Total Shoulder Arthroplasty - Justin Lee, Height/Weight Height: 5 ft 8 in Weight: 75.7 kg Allergies Allergy/AdvReac Type Severity Reaction Status Date / Time Iodinated Contrast Media AdvReac Severe Stage 4 CKD Verified 06/28/24 10:08 [Iodinated Contrast- Oral and IV Dye] ciprofloxacin AdvReac Unknown "Sick to Verified 06/28/24 10:08 stomach" gabapentin AdvReac Unknown balance Verified 06/28/24 10:08 problem and confusion sulfamethoxazole AdvReac Unknown kidney Verified 06/28/24 10:08 [From Bactrim] disease trimethoprim [From Bactrim] AdvReac Unknown kidney Verified 06/28/24 10:08 disease Medications Home Medications Medication Instructions Recorded Confirmed Last Taken multivitamin 1 tab PO QAM 09/01/18 06/28/24 09/03/22 06:00 melatonin 10 mg capsule 10 mg PO HS sleep 03/05/22 06/28/24 09/03/22 22:30 metoprolol succinate 25 mg 25 mg PO QAM 08/10/22 06/28/24 09/04/22 04:45 tablet,extended release 24 hr cyanocobalamin (vitamin B-12) 1,000 mcg PO DAILY #30 tabs 04/22/23 06/28/24 Unknown 1,000 mcg tablet cetirizine 10 mg tablet (Zyrtec) 10 mg PO QAM Allergy Symptoms 06/14/23 06/28/24 Unknown fluticasone propionate 50 2 spray intranasal QAM #48 grams 07/01/23 06/28/24 Unknown mcg/actuation nasal spray,suspension hydrocortisone 2.5 % topical cream 1 applic VA TID PRN hemorrhoids 09/24/23 06/28/24 Unknown with perineal applicator #30 grams chlorthalidone 25 mg tablet 25 mg PO QPM 12/02/23 06/28/24 Unknown torsemide 20 mg tablet 20 mg PO QAM 12/02/23 06/28/24 Unknown calcitriol 0.25 mcg capsule See Rx Instructions PO 3XWK #36 01/27/24 06/28/24 Unknown caps atorvastatin 40 mg tablet 40 mg PO HS #90 tabs 05/29/24 06/28/24 Unknown escitalopram oxalate 10 mg tablet 10 mg PO QPM #90 tabs 05/29/24 06/28/24 Unknown levothyroxine 25 mcg tablet 25 mcg PO QAM #90 tabs 05/29/24 06/28/24 Unknown allopurinol 100 mg tablet 200 mg PO QPM 06/28/24 06/28/24 Unknown aspirin 81 mg chewable tablet 81 mg PO QAM 06/28/24 06/28/24 Unknown (Arlin Chewable Low Dose Aspirin) docusate sodium 50 mg capsule 50 mg PO UD PRN Constipation 06/28/24 06/28/24 Unknown (Stool Softener) lidocaine 5 % topical ointment 1 applic topical UD PRN Anal 06/28/24 06/28/24 Unknown irritation omeprazole 20 mg capsule,delayed 20 mg PO QAM 06/28/24 06/28/24 Unknown release temazepam 30 mg capsule 30 mg PO HS sleep 06/28/24 06/28/24 Unknown tramadol 50 mg tablet 50 - 100 mg PO QID PRN pain 06/28/24 06/28/24 Unknown Past Medical History Medical History Anemia Anxiety and depression Bilateral cataracts Upcoming cataracts surgery scheduled 07/13/24 and 07/20/24 CAD (coronary artery disease) Non-obstructive per 2019 cardiac cath Follows with [facility] cardio Dilated aortic root Echo 10/2022: Mildly enlarged aortic root Essential tremor R > L hands History of basal cell carcinoma Left ear History of colon polyps History of gout HTN (hypertension) Hyperlipidemia Hypothyroidism Left inguinal hernia Osteoarthritis Osteopenia Prostate cancer metastatic to bone s/p prostatectomy (2015), pelvic external beam radiotherapy (2016), SBRT to left femur lesion (2019), LHRH agonist therapy (Depo-Lupron IM, last treatment 2021). PET scan 03/2024 showed right obturator node metastases representing oligometastatic disease and treated with SBRT from 05/15/24-05/19/24 (3000 cGy in 1000 cGy fractions) Bone mets, left femur (oligometastasis) Follows with [facility] heme/onc Renal cyst, acquired Spinal stenosis Stage 4 chronic kidney disease Follows with Dr. Brink Urinary stress incontinence, male Exercise / Class Metabolic Activity III < 4 Walking/Shop/Light housework Past Family History Family History Father Prostate cancer Coronary heart disease Colorectal cancer Mother Alzheimer disease Grandfather (Paternal) Prostate cancer Other No family history of adverse response to anesthesia Denies family history of Ovarian cancer Myocardial infarction Breast cancer Past Surgical History Surgical History History of cardiac cath (2019) 2019- no stents History of colonoscopy History of prostate biopsy History of prostatectomy (2015) History of right hip replacement (2022) History of surgery vasectomy reversal /successful. History of tooth extraction History of vasectomy x2 S/P epidural steroid injection Past Anesthesia History No Hx of Anesthesia Complications and No Family Hx of Anesthesia Complications History of PONV No Hx of PONV and No Hx of Motion Sickness Social History Smoking Status: Never smoker Do You Dip or Chew Tobacco: No Hx Alcohol Use: Yes Alcohol type: wine alcohol intake frequency: holidays/special occasions only Hx Substance Use: No substance use type: does not use Review of Systems Patient denies chest pain, shortness of breath, dyspnea on exertion, fever, chills, cough, wheezing. Physical Exam Vital Signs BP 106/58 P 68 TEMP 97.9 SP02 96%RA RESP 16 Physical Full cervical extension range of motion. Full TMJ range of motion. TMD > 3.5 finger breaths Mallampati Score I Dentition: missing side, + crowns Lungs: clear throughout to auscultation Cardiac: regular rate and rhythm, no murmurs noted Spine: normal Carotid arteries: negative bruit Extremities: no LE edema Lab Results Anesthesia Preop Results Results Anesthesia Widget: Blood Type B Positive 07/10/24 Antibody Screen NEGATIVE 07/10/24 Testing Laboratory Results 06/29/24 WBC 3.55 H/H 12.1/37.1 PLATELETS 202 SODIUM 139 POTASSIUM 4.4 CHLORIDE 102 CO2 23 BUN 68 CREATININE 3.1 (GFR 20) GLUCOSE 96 PT 13.0 PTT 31 INR 1.0 FERRITIN 129 IRON 101 IBC 304 TRANSFERRIN %SAT 33 URIC ACID 5.2 Electrocardiogram Date: 07/10/[address]/TWA, consider inferior and anterolateral ischemia. Chest X-Ray Date: 07/10/24 FINDINGS: Heart size and pulmonary vasculature are normal. Stable mild scarring or atelectasis at the left lung base. No new consolidation or pleural effusion. Stable scoliosis. IMPRESSION: No acute findings. Echocardiogram Date: 11/05/22 LVEF 60 to 64%. Mild AR/TR. Mildly enlarged aortic root. Mildly increased concentric LV wall thickness. LV wall motion is normal. Grade 1 diastolic dysfunction. Stress Test Date: 08/07/22 Type: nuclear Lexiscan nuclear cardiac stress test is "probably normal.." Small area of perfusion defect possible ischemia or attenuation artifact. LVEF 65%. Gated SPECT images reveal normal myocardial thickening and wall motion. Small area of mild intensity reduced perfusion of the distal to mid inferior lateral wall. LVEF 65%. EKG portion negative for ischemia. 91% MPHR.
--- NOTE | 2024-07-26 12:53 | History & Physical Report ---
Date of Service July 26, 2024 Assessment & Plan (1) Rotator cuff arthropathy of right shoulder: We will proceed with a right reverse shoulder arthroplasty. Postoperatively, he will be placed in the sling and will be kept overnight for postop medical management. He plans to use energy physical therapy upon discharge. History of Present Illness Chief Complaint: Cuff tear arthropathy of the right shoulder. Primary Care Provider: Josh Olivas MD Jordon is a pleasant 31-year-old male who has been dealing with chronic increasing right shoulder pain. I was initially working him up about 3 years ago for his right shoulder. X-rays and MRI showed cuff arthropathy at that time. He then began having severe hip pain and I did a hip replacement on him. His shoulder pain is starting to bother him a lot again. He has trouble doing things away from his body or up overhead. He has failed conservative treatment in the past. He has elected proceed with a right reverse shoulder arthroplasty. Allergies Allergy/AdvReac Type Severity Reaction Status Date / Time Iodinated Contrast Media AdvReac Severe Stage 4 CKD Verified 07/24/24 15:56 [Iodinated Contrast- Oral and IV Dye] ciprofloxacin AdvReac Unknown "Sick to Verified 07/24/24 15:56 stomach" gabapentin AdvReac Unknown balance Verified 07/24/24 15:56 problem and confusion sulfamethoxazole AdvReac Unknown kidney Verified 07/24/24 15:56 [From Bactrim] disease trimethoprim [From Bactrim] AdvReac Unknown kidney Verified 07/24/24 15:56 disease Home Medications Medication Instructions Recorded Confirmed Type multivitamin 1 tab PO QAM 09/01/18 07/24/24 History melatonin 10 mg capsule 10 mg PO HS sleep 03/05/22 07/24/24 History metoprolol succinate 25 mg 25 mg PO QAM 08/10/22 07/24/24 History tablet,extended release 24 hr cyanocobalamin (vitamin B-12) 1,000 mcg PO DAILY #30 tabs 04/22/23 07/24/24 Rx 1,000 mcg tablet cetirizine 10 mg tablet (Zyrtec) 10 mg PO QAM Allergy Symptoms 06/14/23 07/24/24 History fluticasone propionate 50 2 spray intranasal QAM #48 grams 07/01/23 07/24/24 Rx mcg/actuation nasal spray,suspension hydrocortisone 2.5 % topical cream 1 applic TX TID PRN hemorrhoids 09/24/23 07/24/24 Rx with perineal applicator #30 grams chlorthalidone 25 mg tablet 25 mg PO QPM 12/02/23 07/24/24 History torsemide 20 mg tablet 20 mg PO QAM 12/02/23 07/24/24 History calcitriol 0.25 mcg capsule See Rx Instructions PO 3XWK #36 01/27/24 07/24/24 Rx caps atorvastatin 40 mg tablet 40 mg PO HS #90 tabs 05/29/24 07/24/24 Rx escitalopram oxalate 10 mg tablet 10 mg PO QPM #90 tabs 05/29/24 07/24/24 Rx levothyroxine 25 mcg tablet 25 mcg PO QAM #90 tabs 05/29/24 07/24/24 Rx allopurinol 100 mg tablet 200 mg PO QPM 06/28/24 07/24/24 History aspirin 81 mg chewable tablet 81 mg PO QAM 06/28/24 07/24/24 History (Arlin Chewable Low Dose Aspirin) docusate sodium 50 mg capsule 50 mg PO UD PRN Constipation 06/28/24 07/24/24 History (Stool Softener) lidocaine 5 % topical ointment 1 applic topical UD PRN Anal 06/28/24 07/24/24 History irritation omeprazole 20 mg capsule,delayed 20 mg PO QAM 06/28/24 07/24/24 History release temazepam 30 mg capsule 30 mg PO HS sleep 06/28/24 07/24/24 History tramadol 50 mg tablet 50 - 100 mg PO QID PRN pain 06/28/24 07/24/24 History Past Med/Surg History Problem List Bilateral cataracts Rotator cuff arthropathy of right shoulder Gout Hemorrhoids Squamous cell carcinoma, ear Inguinal hernia Generalized osteoarthritis Vitamin B 12 deficiency Actinic keratosis Chronic constipation Encounter for pre-operative examination Anxiety and depression Rotator cuff tear, right Tremor Gynecomastia Urinary incontinence (Chronic) Benign colonic polyp (Chronic) CKD (chronic kidney disease), stage IV (Chronic) Hypercholesterolemia (Chronic) Hypertension (Chronic) Hypothyroidism (Chronic) Insomnia (Chronic) Osteopenia (Chronic) Prostate cancer (Chronic) Renal cyst, acquired (Chronic) Tinnitus (Chronic) Medical History CAD (coronary artery disease) Non-obstructive per 2019 cardiac cath Follows with [facility] cardio Bilateral cataracts Upcoming cataracts surgery scheduled 07/13/24 and 07/20/24 Hypothyroidism Hyperlipidemia HTN (hypertension) Anxiety and depression Left inguinal hernia Urinary stress incontinence, male Renal cyst, acquired Stage 4 chronic kidney disease Follows with Dr. 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 PET scan 03/2024 showed right obturator node metastases representing oligometastatic disease and treated with SBRT from 05/15/24-05/19/24 (3000 cGy in 1000 cGy fractions) Bone mets, left femur (oligometastasis) Follows with [facility] heme/onc Osteopenia History of gout Osteoarthritis Anemia Dilated aortic root Echo 10/2022: Mildly enlarged aortic root Spinal stenosis Essential tremor R > L hands History of basal cell carcinoma Left ear Surgical History History of cardiac cath (2018) 2019- no stents History of right hip replacement (2022) History of vasectomy x2 History of prostatectomy (2015) History of prostate biopsy History of surgery vasectomy reversal /successful. S/P epidural steroid injection History of colonoscopy History of tooth extraction Family History Father Prostate cancer Coronary heart disease Colorectal cancer Mother Alzheimer disease Grandfather (Paternal) Prostate cancer Other No family history of adverse response to anesthesia Denies family history of Ovarian cancer Myocardial infarction Breast cancer Social History Smoking Status: Never smoker Second Hand Exposure: Yes ( A CHILD); Do You Dip or Chew Tobacco: No; Hx Alcohol Use: Yes Alcohol type: wine Alcohol Intake Frequency: Monthly or Less Hx Substance Use: No Preferred Language: Arabic Communication Ability: Effective Communication Ability Comment: makah at times. helps with info throughout phone call at times. Visual Impairment: No Limitations Hearing Ability: Normal Horse Trader Required: No Beliefs That Will Affect Care: None marital status: Current Living Situation: Spouse Current Living Situation Comment: and a cat current occupational status: retired current occupation: Used to work at [employer] as the [employer] How many Children do You have: 3 Feels Safe at Home: Yes Childhood Exposure to Second-Hand Smoke: Yes (father) Diet: low carbohydrate, low salt and regular caffeine: Yes during the past year weight has: remained stable Dental Care, Regularly: Yes Physical Activity Frequency: Does not Exercise Physical Activity Frequency Comment: Gets more exercise in the summer when the weather is nice. Seatbelt Use: always Sunscreen Use: No Do you think of yourself as: straight/heterosexual Gender Identity: Male Assistive Devices: Glasses Review of Systems All systems reviewed & are unremarkable except as noted in HPI & below. Physical Exam On physical examination of the right shoulder, he has about 120 degrees of forward elevation and 80 degrees of abduction. He has 4 out of 5 strength throughout.. Constitutional WD/WN, vitals as above Eyes PERRL, conjunctivae normal, anicteric sclerae ENMT external ear and nose normal, oropharynx normal Neck trachea midline, no thyromegaly Respiratory normal respiratory effort Cardiovascular RRR, no murmur, no edema Gastrointestinal (Abdomen) normal bowel sounds, soft, nontender, no hepatosplenomegaly Psychiatric A+Ox3, euthymic affect Results & Data Results & Data Laboratory Results . Diagnostic Findings X-rays of the right shoulder show superior migration of the humeral head of the glenoid and advanced glenohumeral arthritis.. PG Care Time/CCT Total # of Minutes Spent Total Time Spent with Patient: Total time spent is greater than 50% in coordination of care (as documented) at patient's floor/unit and/or counseling patient: Coding Level of Care Code None Diagnoses Rotator cuff arthropathy of right shoulder M12.811
[~2024-07-31 10:04] MED LIST: BUPIVACAINE 0.5 % 5 MG/1 ML PF 10ML VIAL ONE
--- NOTE | 2024-07-31 10:51 | History & Physical Bridge Note ---
Date of Service July 31, 2024 History & Physical Bridge Note I have examined the patient, reviewed the History & Physical and in the interval since the performance of the History & Physical I have noted the following changes of clinical significance: no changes noted
[2024-07-31] MEDS ORDERED: ATROPINE SULFATE 0.1 MG/ML 10ML SYR IV PRN (11:54)
[2024-07-31] MEDS ORDERED: ePHEDrine sulfate 50 MG/ML AMP IV PRN (11:54)
[2024-07-31] MEDS ORDERED: ONDANSETRON INJ 2 MG/ML 2 ML VIAL IV PRN (11:54)
[2024-07-31] MEDS ORDERED: fentaNYL citrate PF 100 MCG/2 ML VIAL IV PRN (11:54)
[2024-07-31] MEDS: ACETAMINOPHEN 500 MG TAB PO SCH ×2 (12:00→22:29)
[2024-07-31] MEDS: dexAMETHasone**PF** 10 MG/ML VIAL IV SCH (12:01)
[2024-07-31] MEDS: FAMOTIDINE 20 MG TAB PO SCH (12:01)
[2024-07-31] MEDS: SODIUM CHLORIDE 0.9% 1000ML IV SCH (12:01)
[2024-07-31] MEDS: LR 60ML/HR IV SCH (12:16)
[2024-07-31] MEDS: ALLERGY Noted to ORDERED Medication SCH (12:17)
[2024-07-31] MEDS ORDERED: PROPOFOL IV EMULSION 10 MG/ML 20 ML VIAL IV ONE (13:37)
[2024-07-31] MEDS ORDERED: LIDOCAINE 2% 2 ML VIAL/AMP(20MG/ML) INFIL ONE (13:37)
[2024-07-31] MEDS ORDERED: MIDAZOLAM HCL 1 MG/ML 2ML VIAL ONE (13:37)
[2024-07-31] MEDS ORDERED: fentaNYL citrate PF 100 MCG/2 ML VIAL ONE (13:38)
[2024-07-31] MEDS: TRANEXAMIC ACID 1,000 MG **IV Pre-op IV SCH (14:24)
[2024-07-31] MEDS: ceFAZolin 2000MG 2,000 MG/15 ML SYR IV SCH ×2 (14:39→22:39)
[2024-07-31] MEDS ORDERED: PHENYLEPHRINE HCL 10 MG/ML VIAL ONE (15:05)
[2024-07-31] MEDS: ORTHO JOINT ANESTHETIC ONE (15:08)
[2024-07-31] MEDS: ROPIV 0.5% 246mg, Ketorolac 30mg, EPINEPHrine 0.5mg in NSS INFIL SCH (15:08)
[2024-07-31] MEDS: TRANEXAMIC ACID 1,000 MG **IV Intra-op IV SCH (15:44)
--- NOTE | 2024-07-31 15:49 | Operative Report ---
PG Post Operative Report Pre & Post Diagnosis Operation Date: 07/31/24 12:00 Pre-Op Diagnosis: Cuff tear arthropathy of the right shoulder with tendinopathy long head of the biceps tendon Post-Op Diagnosis: Cuff tear arthropathy right shoulder with tendinopathy long head of the biceps tendon I identified the patient and participated in the time-out.: Yes Procedure Operation Date: 07/31/24 12:00 Actual Procedures p Right Reverse Total Shoulder Arthroplasty(Right) with open biceps tenodesis as a distinct and separate procedure (modifier 59)- Justin Lee DO Surgeon Justin Lee DO Communication Instructor Bren Rodriguez PA-C Estimated Blood Loss 200 Findings Consistent with Post-Op Diagnosis Specimens Right humeral head Description of Procedure A CPT code modifier 59: The long head of the biceps tendon was enlarged and inflamed consistent with tendinopathy. A tenodesis was opted. This was a separate and distinct portion of the procedure. For these reasons, a CPT code modifier 59 will be added to this case. Implants used: I used a Biomet Comprehensive reverse total shoulder arthroplasty system with a size 14 press fit micro humeral stem, a +6 offset humeral tray and a +2 retentive humeral bearing, a 25 mm small augment baseplate with a 6.5 mm central screw and superior and inferior locking screws, and a size 40 mm eccentric glenosphere. Trevor arrived at [facility] for the above procedure. He was seen in the preoperative holding area and the operative extremity was identified and signed. He was given a preoperative antibiotic, TXA, and an interscalene nerve block. He was taken back to the operating room, laid on table in supine position, and put under general anesthesia. He was then put into the beachchair position. The shoulder was then prepped and draped in sterile fashion. A timeout was done and the patient and the operative extremity was properly identified. A deltopectoral approach was used. Dissection was taken down through the fascia and the deltoid was retracted laterally and the conjoined tendon was retracted medially. The anterior shoulder was exposed. The biceps groove was opened up and the biceps tendon was examined extensively. The biceps tendon demonstrated enlargement and inflammatory changes consistent with longstanding inflammation in the context of osteoarthritis and cuff arthropathy. The long head of the biceps tendon was then tenodesed to the upper border of the pectoralis major. This was a separate and distinct portion of the procedure. The subscapularis was then directly released off the lesser tuberosity with a peel technique. The inferior capsule was released and the humeral head was dislocated. A canal finding reamer was sent down the center of the humeral canal. Sequential reaming up to a size 14 reamer was done. Off that reamer, a proximal humeral resection guide was placed. The proximal humerus was resected at 135 of inclination and 25 of retroversion. Osteophytes were then removed and the glenoid was exposed. Time was spent doing a complete capsular and labral release. The glenoid guide was then placed in the inferior aspect of the glenoid. A 3.2 mm Steinmann pin was then placed into the glenoid vault at 10 of inclination. The glenoid baseplate was then reamed. The final size 25 mm small augment baseplate was then impacted in the place. A 6.5 mm central screw was then placed followed by superior and inferior locking screws. A 40 mm eccentric glenosphere was then impacted into place. Surrounding soft tissues were then injected with 100 cc an orthopedic pain control cocktail. The proximal humerus was then exposed. Sequential broaching of the humerus up to a size 14 broach was done. Off that broach a +6 offset and +3 retentive humeral tray was trialed. The shoulder was then reduced, brought through a full range of motion, and felt to be stable. The shoulder was then dislocated and the broach was removed. The final size 14 micro press-fit humeral stem was then impacted into place. A +3 retentive humeral bearing was then snapped onto a +6 offset humeral tray. The humeral tray was then impacted onto the humeral stem. The shoulder was once again reduced, brought through a full range of motion, and felt to be stable. The subscapularis was then repaired back to the lesser tuberosity using transosseous FiberWire sutures. The subscapularis was poor quality and unable to be repaired.. A dilute betadyne lavage was then done for 3 minutes. The joint was then irrigated with normal saline solution. Hemostasis was obtained. The interval was closed with 2-0 Vicryl suture. The skin was then closed with 2-0 Vicryl and curly. A Silverlon dressing was placed and the arm was rested in a regular arm sling. He was then extubated and transferred to a hospital bed. He taken to the postanesthesia care unit in stable condition. He tolerated the procedure well. Bren Rodriguez PA-C was present for the entire procedure. He was critical for patient positioning, prepping, draping, retraction exposure, wound closure and application of sterile dressing. I attest to the content of the Intraoperative Record and any orders documented therein. Any exceptions are noted below.
[2024-07-31] MEDS ORDERED: ONDANSETRON INJ 2 MG/ML 2 ML VIAL ONE (16:23)
--- NOTE | 2024-07-31 16:50 | Anesthesiology Progress Note ---
Date of Service July 31, 2024 Anesthesia Post Procedure Vital Signs Vital Signs: Temp Pulse Pulse Resp BP Pulse Ox O2 Del Method 07/31/24 16:45 36.3 C L 92 H 16 130/69 93 Room Air 07/31/24 16:35 93 H 16 135/80 93 Oxymask 07/31/24 16:25 93 H 16 132/75 96 Oxymask 07/31/24 16:15 36 C L 92 H 16 130/76 99 Oxymask 07/31/24 10:50 Room Air 07/31/24 10:50 36.6 C 88 20 131/83 96 Room Air O2 Flow Rate 07/31/24 16:45 07/31/24 16:35 2 07/31/24 16:25 4 07/31/24 16:15 6 07/31/24 10:50 07/31/24 10:50 Transfer of Care Handoff Completed per policy Notes Mental Status: alert / awake / arousable and participated in evaluation Patient Amnestic to Procedure: Yes Nausea / Vomiting: adequately controlled Pain: adequately controlled Airway Patency, RR, SpO2: stable & adequate BP & HR: stable & adequate Hydration State: stable & adequate Anesthetic Complications: no major complications apparent and Pt Satisfied with anesthetic care
--- NOTE | 2024-07-31 16:52 | XRay Report ---
3 views of the right shoulder are submitted for review. Comparison is made to the prior examination dated 05/09/2024 Findings: This examination is limited by suboptimal positioning. No fracture is seen. There is mild acromioclavicular osteoarthritis. There is a new glenohumeral arthroplasty in grossly expected position. There are adjacent pockets of air in the soft tissues, consistent with recent surgery. No other osseous abnormality is identified. There are no radiopaque foreign bodies. Impression: New right shoulder replacement ACT 112: Positive. There are findings on this exam that require communication between the performing entity and the patient following Patient Test Result Information Act ([place] ACT 112) guidelines. Electronically signed by Elvis Catalan 07-31-2024 4:51 PM
[2024-07-31] MEDS ORDERED: oxyCODONE HCL IR 5 MG TAB (IMMEDIATE RELEASE) PO PRN (17:03)
[2024-07-31] MEDS ORDERED: METOCLOPRAMIDE HCL INJ 5 MG/ML 2 ML VIAL IV PRN (17:03)
[2024-07-31] MEDS ORDERED: bisacodyL 10 MG SUPP PR PRN (17:03)
[2024-07-31] MEDS ORDERED: TAMSULOSIN HCL 0.4 MG CAP PO PRN (17:03)
[2024-07-31] MEDS ORDERED: NALOXONE HCL 0.4 MG/1 ML VIAL/CARP IV PRN (17:03)
[2024-07-31] MEDS ORDERED: diphenhydrAMINE Capsule 25 MG CAP PO PRN (17:03)
[2024-07-31] MEDS ORDERED: HYDROmorphone INJ 0.5 MG/0.5 ML SYR IV PRN (17:03)
[2024-07-31] MEDS ORDERED: MAGNESIUM HYDROXIDE SUSP 30 ML UDC PO PRN (17:03)
[2024-07-31] MEDS: BUPIVACAINE LIPOSOME 1.3% 133 MG/10 ML VIAL ONE (17:19)
[2024-07-31] MEDS: KETOROLAC TROMETHAMINE 15 MG/ML VIAL IV SCH (17:37)
[2024-07-31] MEDS: SODIUM CHLORIDE 0.9% 1,000 ML IV SCH (17:44)
[2024-07-31] MEDS: ESCITALOPRAM OXALATE 10 MG TAB PO SCH (22:26)
[2024-07-31] MEDS: ATORVASTATIN 40 MG TAB PO SCH (22:26)
[2024-07-31] MEDS: MELATONIN 3 MG TAB PO SCH (22:26)
[2024-07-31] MEDS: CHLORTHALIDONE 25 MG TAB PO SCH (22:27)
[2024-07-31] MEDS: ASPIRIN 81 MG ECTAB PO SCH (22:28)
[2024-07-31] MEDS: LORazepam 1 MG TAB PO SCH (22:29)
[2024-07-31] MEDS: allopurinoL 100 MG TAB PO SCH (22:29)
[2024-07-31] MEDS: DOCUSATE SODIUM 100 MG CAP PO SCH (23:30)
[2024-07-31] MEDS: SENNA 8.6 MG TAB PO SCH (23:30)
[2024-08-01 03:32] VITALS: TEMP 97.7
[2024-08-01] MEDS: LEVOTHYROXINE SODIUM 25 MCG TABLET PO SCH (06:05)
[2024-08-01 07:04] VITALS: BP 119/72; PULSE 86; RESP 16; O2SAT 96
[2024-08-01] MEDS: METOPROLOL SUCC 25MG EXT REL TAB PO SCH (07:44)
[2024-08-01] MEDS: dexAMETHasone 4 MG TAB PO SCH (07:44)
[2024-08-01] MEDS: TORSEMIDE 20 MG TAB PO SCH (07:45)
[2024-08-01] MEDS: PANTOprazole 40 MG TAB PO SCH (07:45)
[2024-08-01] MEDS: MULTIVITAMIN TAB PO SCH (07:45)
[2024-08-01] MEDS ORDERED: MULTIVITAMIN TAB PO SCH (09:00)
--- NOTE | 2024-08-01 09:41 | Orthopedic Progress Note ---
Date of Service August 01, 2024 Assessment & Plan (1) Status post reverse total arthroplasty of right shoulder: * Continue Current Treatment * Disposition: home * Daily treatment: Physical Therapy/ Occupational Therapy per protocol * Weight bearing status: NWB RUE * Continue to monitor for ABLA * Pain control * DVT prophylaxis, ASA/Eliquis * Office/hospital f/u 2 weeks for progress check and staple/suture removal * Plan for discharge today pending PT/OT clearance Subjective .Active Problems: S/p right reverse total shoulder arthroplasty 83 y/o male s/p right rTSA. Doing well overall, pain managed and improved function. Denies fever/chills, chest pain/SOB, nausea/vomiting. Otherwise no complaints. Review of Systems All systems reviewed & are unremarkable except as noted in HPI & below. Physical Exam . .right shoulder surgical dressing CDI, not removed for exam. Otherwise no obvious deformity or overlying skin changes. Diffuse TTP upper arm and shoulder region. Otherwise no specific tenderness of upper arm, elbow, forearm, wrist/hand. AROM shoulder not assessed. AROM elbow, wrist/hand intact. Sensation intact radial/median/ulnar nerve distributions. Brisk capillary refill. Results & Data Results & Data Laboratory Results . Diagnostic Findings . PG Care Time/CCT Total # of Minutes Spent Total Time Spent with Patient: Total time spent is greater than 50% in coordination of care (as documented) at patient's floor/unit and/or counseling patient: Coding Level of Care Code 97571 Post Operative Follow-Up Diagnoses Status post reverse total arthroplasty of right shoulder Z96.611
[2024-08-01] MEDS: ONDANSETRON INJ 2 MG/ML 2 ML VIAL IV PRN (09:47)
== END 2024-08-01 11:10 | disposition home or self-care (01) ==
LOC: 3E 10:04 → ASU 10:04